=== PATIENT | male | born 1970 | race Caucasian/White ===

== ENCOUNTER 2018-05-16 12:11 | Emergency (ER) | payer BC, OTHER ==
[2018-05-16] MEDS: Lidocaine 2% Jelly 10 ML Urojet MUCMEM ONE (13:07)
--- NOTE | 2018-05-16 15:10 | EDM.PDOC ---
ED HPI GENERAL MEDICAL PROBLEM - General Chief Complaint: Genitourinary Problem Stated Complaint: DIFFUCULTY URINATING Time Seen by Provider: 05/16/18 12:28 Source of Information: Reports: Patient, RN Notes Reviewed - History of Present Illness INITIAL COMMENTS - FREE TEXT/NARRATIVE: 47 year old male comes in with voiding difficulty, has had this off and on for about 5 days, worse this past morning. No fever, chills, N/V or back pain. No hx of prostate problems. No unusual discharge. Had a CT done yesterday at [place] but has not received report, can't see provider until Sunday. - Related Data Allergies Allergy/AdvReac Type Severity Reaction Status Date / Time No Known Allergies Allergy Verified 05/16/18 12:28 Home Meds: Home Meds Levofloxacin [Levaquin] 500 mg PO DAILY #7 tablet 05/16/18 [Rx] Past Medical History - Past Health History Medical/Surgical History: Denies Medical/Surgical History Social & Family History - Family History Family Medical History: Noncontributory - Tobacco Use Smoking Status *Q: Current Every Day Smoker Years of Tobacco use: 25 Packs/Tins Daily: 0.5 - Caffeine Use Caffeine Use: Reports: Coffee, Tea - Recreational Drug Use Recreational Drug Use: No ED ROS GENERAL - Review of Systems Review Of Systems: See Below Constitutional: Denies: Fever, Chills HEENT: Reports: No Symptoms. Denies: Contact Lenses Respiratory: Denies: Shortness of Breath Cardiovascular: Denies: Chest Pain GI/Abdominal: Denies: Abdominal Pain, Nausea, Vomiting : Reports: Frequency, Urgency. Denies: Hematuria Musculoskeletal: Denies: Back Pain Skin: Reports: No Symptoms Neurological: Reports: No Symptoms ED EXAM, RENAL/ - Physical Exam Exam: See Below General Appearance: Alert, No Apparent Distress Throat/Mouth: Normal Inspection Head: Atraumatic Neck: Supple Respiratory/Chest: No Respiratory Distress, Lungs Clear, Normal Breath Sounds Cardiovascular: Regular Rate, Rhythm GI/Abdominal: Soft, Non-Tender, Other (bladder not distended at time of exam) Back Exam: No: CVA Tenderness (L), CVA Tenderness (R) Neurological: Alert, Oriented Skin Exam: Warm, Dry, Normal Color Course - Vital Signs Last Recorded V/S: Last Vital Signs Temp 98 F 05/16/18 12:20 Pulse 79 01/10/19 12:20 Resp 18 05/16/18 12:20 BP 139/94 H 05/16/18 12:20 Pulse Ox 100 05/16/18 12:20 - Orders/Labs/Meds Orders: Active Orders 24 hr Category Date Time Status CULTURE URINE [RM] Stat Lab 05/16/18 10:00 Received Labs: Laboratory Tests 05/16/18 05/16/18 05/16/18 Range/Units 13:20 13:20 14:00 WBC 6.77 (4.23-9.07) K/mm3 RBC 5.66 (4.63-6.08) M/mm3 Hgb 16.2 (13.7-17.5) gm/L Hct 48.3 (40.1-51.0) % MCV 85.3 (79.0-92.2) fl MCH 28.6 (25.7-32.2) pg MCHC 33.5 (32.2-35.5) g/dl RDW Std Deviation 42.7 (35.1-43.9) fL Plt Count 251 (163-337) K/mm3 MPV 10.2 (9.4-12.3) fl Neut % (Auto) 70.3 H (34.0-67.9) % Lymph % (Auto) 13.9 L (21.8-53.1) % Ripley % (Auto) 12.6 H (5.3-12.2) % Eos % (Auto) 2.7 (0.8-7.0) Baso % (Auto) 0.4 (0.1-1.2) % Neut # (Auto) 4.76 (1.78-5.38) K/mm3 Lymph # (Auto) 0.94 L (1.32-3.57) K/mm3 Ripley # (Auto) 0.85 H (0.30-0.82) K/mm3 Eos # (Auto) 0.18 (0.04-0.54) K/mm3 Baso # (Auto) 0.03 (0.01-0.08) K/mm3 Sodium 142 (136-145) mEq/L Potassium 4.2 (3.5-5.1) mEq/L Chloride 106 (98-107) mEq/L Carbon Dioxide 25 (21-32) mEq/L Anion Gap 15.2 H (5-15) BUN 12 (7-18) mg/dL Creatinine 1.2 (0.7-1.3) mg/dL Est Cr Clr Drug Dosing 80.27 mL/min Estimated GFR (MDRD) > 60 (>60) mL/min BUN/Creatinine Ratio 10.0 L (14-18) Glucose 110 H (74-106) mg/dL Calcium 8.6 (8.5-10.1) mg/dL Total Bilirubin 0.7 (0.2-1.0) mg/dL AST 23 (15-37) U/L ALT 40 (16-63) U/L Alkaline Phosphatase 81 (46-116) U/L Total Protein 7.3 (6.4-8.2) g/dl Albumin 3.8 (3.4-5.0) g/dl Globulin 3.5 gm/dL Albumin/Globulin Ratio 1.1 (1-2) Urine Color Yellow (Yellow) Urine Appearance Cloudy H (Clear) Urine pH 8.0 (5.0-8.0) Ur Specific Anita 1.020 (1.005-1.030) Urine Protein 1+ H (Negative) Urine Glucose (UA) Negative (Negative) Urine Ketones Negative (Negative) Urine Occult Blood Negative (Negative) Urine Nitrite Negative (Negative) Urine Bilirubin Negative (Negative) Urine Urobilinogen 1.0 (0.2-1.0) Ur Leukocyte Esterase 1+ H (Negative) Urine RBC 0-5 (0-5) /hpf Urine WBC 40-50 H (0-5) /hpf Ur Epithelial Cells 10-20 H (0-5) /hpf Urine Bacteria Many H (FEW) /hpf Urine Mucus Rare H (FEW) /hpf Meds: Medications Discontinued Medications Generic Name Dose Route Start Last Admin Trade Name Freq PRN Reason Stop Dose Admin Levofloxacin 750 mg 05/16/18 15:07 05/16/18 15:12 Levaquin PO 05/16/18 15:08 750 mg ONETIME ONE Administration Lidocaine HCl 10 ml 05/16/18 13:02 05/16/18 13:07 Xylocaine 2% Jelly MUCMEM 05/16/18 13:03 10 ml ONETIME ONE Administration - Re-Assessments/Exams Free Text/Narrative Re-Assessment/Exam: 05/16/18 19:32 Pt has UTI, urine culture ordered, levaquin 750 oral, and than 500 mg daily for 7 days, discharge instr. as documented. Departure - Departure Time of Disposition: 15:07 Disposition: Home, Self-Care 01 Condition: Fair Clinical Impression: UTI, Urinary tract infectious disease - Discharge Information Prescriptions: Levofloxacin [Levaquin] 500 mg PO DAILY #7 tablet Instructions: Urinary Tract Infection, Adult, [id number] Referrals: Mary Herrera, [employer] [Primary Care Provider] - Forms: ED Department Discharge Additional Instructions: you have been given levaquin 750 mg orally while here in the ED, continue 500 mg orally once daily for the next 7 days. Call the ED Sunday after 9 AM for culture results, [phone], ask for Dr Ybarra. Follow up clinic early next week for recheck, repeat Ua which should be clear of infection by than. - My Orders Last 24 Hours: My Active Orders 05/16/18 10:00 CULTURE URINE [RM] Stat - Assessment/Plan Last 24 Hours: My Active Orders 05/16/18 10:00 CULTURE URINE [RM] Stat
[2018-05-16] MEDS: Levofloxacin 500 MG Tab PO ONE (15:12)
== END 2018-05-16 15:20 | disposition home or self-care (01) ==
LOC: JD.ED 12:11
DX: N39.0 Urinary tract infection, site not specified (principal); F17.210 Nicotine dependence, cigarettes, uncomplicated
CPT/HCPCS: 36415; 80053; 81001; 85025; 87086; 87181; 87184; 99283; 99284; A9270-GY